=== PATIENT | male | born 1975 | race Two or more races ===

== ENCOUNTER 2018-05-05 14:23 | Emergency (ER) | payer OTHER ==
[~2018-05-05] VITALS: Ht 180.3 cm; Wt 90.7 kg
[2018-05-05 14:31] VITALS: BP 127/78
[2018-05-05] MEDS ORDERED: HYDR-3165 PO (14:40)
[2018-05-05] MEDS ORDERED: PRED50TA PO (14:40)
[2018-05-05] MEDS ORDERED: MELO7.5T5 PO (14:40)
[2018-05-05] MEDS ORDERED: VALA1000 PO (14:40)
--- NOTE | 2018-05-05 14:40 | PHYS DOC ---
Past History Past Medical History: No Pertinent History Past Surgical History: No Surgical History Smoking: Non-smoker Alcohol Use: Occasionally Drug Use: None Adult General Chief Complaint Chief Complaint: SKIN RASH/ABSCESS HPI HPI Patient is a 42 year old male who presents with painful rash on his right side. This started earlier today. Pain wraps around his front in a band. No trauma. No fever. No drainage from the rash. No change in soaps, lotions, detergents. No shortness of breath. Patient does have a history of chickenpox several years ago. Never got the vaccination for chickenpox. Nothing seems to make the rash or the discomfort better or worse. 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 [place][] Review of Systems Review of Systems Constitutional: Denies fever or chills [] Eyes: Denies change in visual acuity, redness, or eye pain [] HENT: Denies nasal congestion or sore throat [] Respiratory: Denies cough or shortness of breath [] Cardiovascular: No chest pain or palpitations[] GI: Denies abdominal pain, nausea, vomiting, bloody stools or diarrhea [] : Denies dysuria or hematuria [] Musculoskeletal: Denies back pain or joint pain [] Integument: See history of present illness[] Neurologic: Denies headache, focal weakness or sensory changes [] Endocrine: Denies polyuria or polydipsia [] All other systems were reviewed and found to be within normal limits, except as documented in this note. Physical Exam Physical Exam Constitutional: Well developed, well nourished, no acute distress, non-toxic appearance. [] HENT: Normocephalic, atraumatic, bilateral external ears normal, oropharynx moist, no oral exudates, nose normal. [] Eyes: PERRLA, EOMI, conjunctiva normal, no discharge. [] Neck: Normal range of motion, no tenderness, supple, no stridor. [] Cardiovascular:Heart rate regular rhythm, no murmur [] Lungs & Thorax: Bilateral breath sounds clear to auscultation [] Abdomen: Examined[] Skin: Warm, dry, no erythema, erythematous base with 5 papules on his right, posterior axillary line approximately 7 cm in diameter for the erythematous base , no drainage, no other lesions noted. The papules appear pale in comparison. No axillary lymphadenopathy[] Back: No tenderness, no CVA tenderness. [] Extremities: No tenderness, no cyanosis, no clubbing, ROM intact, no edema. [] Neurologic: Alert and oriented X 3, normal motor function, normal sensory function, no focal deficits noted. [] Psychologic: Affect normal, judgement normal, mood normal. [] EKG EKG [] Radiology/Procedures Radiology/Procedures [] Course & Med Decision Making Course & Med Decision Making Pertinent Labs and Imaging studies reviewed. (See chart for details) Medical decision making: This appears to be early shingles. No evidence of staph scalded skin syndrome, toxic epidermal necrolysis, nor systemic toxicity. No evidence of necrotizing fasciitis[] Dragon Disclaimer Dragon Disclaimer This electronic medical record was generated, in whole or in part, using a voice recognition dictation system. Departure Departure: Impression: Primary Impression: Shingles Disposition: HOME, SELF-CARE Condition: GOOD Referrals: SENAIT MEREDITH DO (PCP) Follow-up in 2 days Patient Instructions: Shingles Additional Instructions: Follow-up with your regular doctor in 2 days. Keep the area clean and dry. Return to the ER if worsening pain or any other concerns. Scripts Hydrocodone Bit/Acetaminophen (NORCO 5-325 TABLET) 1 Each Tablet 1-2 TAB PO Q4-6HRS for severe pain, #20 TAB Prov: LAURI VAIL DO 05/05/18 Meloxicam (MOBIC) 7.5 Mg Tablet 1 TAB PO DAILY for pain, #30 TAB Prov: LAURI VAIL DO 05/05/18 Prednisone (PREDNISONE) 50 Mg Tablet 1 TAB PO DAILY for INFLAMMATION, #7 TAB Prov: LAURI VAIL DO 05/05/18 Valacyclovir Hcl (VALACYCLOVIR) 1,000 Mg Tablet 1 TAB PO TID for shingles, #21 TAB Prov: LAURI VAIL DO 05/05/18 Problem Qualifiers Primary Impression: Shingles Herpes zoster complications: without complications Qualified Codes: B02.9 - Zoster without complications LAURI VAIL DO May 05, 2018 14:40
== END 2018-05-05 14:47 | disposition home or self-care (01) ==
LOC: ER 14:23
DX: B02.9 Zoster without complications (principal)
CPT/HCPCS: 99283